=== PATIENT | female | born 1985 | race Caucasian/White ===

== ENCOUNTER 2018-08-26 19:30 | Inpatient (IN) | END 2018-08-27 21:30 | disposition home or self-care (01) | DRG 833 ==

== ENCOUNTER 2018-08-30 10:58 | Outpatient (CLI) | END 2018-08-30 14:30 | disposition home or self-care (01) ==

== ENCOUNTER 2018-09-18 13:43 | Inpatient (IN) | END 2018-09-21 19:07 | disposition home or self-care (01) | DRG 788 ==